=== PATIENT | male | born 1960 | race Caucasian/White ===

== ENCOUNTER 2018-06-11 09:30 | Outpatient (POV) | END 2018-06-11 17:00 | LOC: OUTPT 09:30 | PROVIDERS: ATTEND Otolaryngology | DX: H90.5 Unspecified sensorineural hearing loss (principal) ==

== ENCOUNTER 2018-11-22 22:03 | Emergency (ER) | payer OTHER ==
[2018-11-22 22:22] VITALS: BP 159/83; TEMP 99.3; BMI 29.6
--- NOTE | 2018-11-22 22:46 | ED.PDOC ---
General ED Provider: Dr. MARLINE BURDICK-ER Chief Complaint: Earache Stated Complaint: my ear is bleeding Time Seen by Physician: 22:43 Mode of Arrival: Wheelchair Information Source: Patient Exam Limitations: No limitations Primary Care Provider: RUTH BEDOLLA Nursing and Triage Documentation Reviewed and Agree: Yes Does patient meet sepsis criteria?: No System Inflammatory Response Syndrome: Not Applicable Sepsis Protocol: For patient's 13 years and over: Temp is 96.8 and below OR 101 and greater Pulse >90 BPM Resp >20/minute Acutely Altered Mental Status Are patient's symptoms suggestive of a new infection, such as: -Pneumonia -Skin, Soft Tissue -Endocarditis -UTI -Bone, Joint Infection -Implantable Device -Acute Abdominal Infection -Wound Infection -Meningitis -Blood Stream Catheter Infection -Unknown EENT Complaint Exam - Ear Complaint/Exam Onset/Duration: today Symptoms Are: Still present Initial Severity: Mild Current Severity: Mild Character: Reports: Dull pain Alleviating: Reports: None Associated Signs and Symptoms: Reports: Ear trauma Vesicles to External Pinna: No Vesicles to Tragus: No Tympanic Membrane: Erythema Differential Diagnoses: Otitis Media Review of Systems - Review Of Systems Constitutional: Reports: No symptoms Eyes: Reports: No symptoms Ears, Nose, Mouth, Throat: Reports: Ear pain, Ear discharge Respiratory: Reports: No symptoms Cardiac: Reports: No symptoms GI: Reports: No symptoms : Reports: No symptoms Musculoskeletal: Reports: No symptoms Skin: Reports: No symptoms Neurological: Reports: No symptoms Endocrine: Reports: No symptoms Hematologic/Lymphatic: Reports: No symptoms All Other Systems: Reviewed and Negative Past Medical History - Past Medical History Previously Healthy: No Endocrine: Reports: Unknown Cardiovascular: Reports: Unknown Respiratory: Reports: Unknown Hematological: Reports: Unknown Gastrointestinal: Reports: Unknown Genitourinary: Reports: Unknown Neuro/Psych: Reports: Unknown Musculoskeletal: Reports: Unknown Cancer: Reports: Unknown - Surgical History General Surgical History: Reports: Unknown - Family History Family History: Reports: Unknown - Social History Smoking Status: Never smoker Hx Substance Use: Yes Alcohol Screening: None - Immunizations Tetanus Shot up to Date: No (IS ALLERGIC) Physical Exam - Physical Exam Appearance: Well-appearing, No pain distress, Well-nourished Pain Distress: Mild Eyes: OSCAR, EOMI, Conjunctiva clear ENT: Erythema Neck: Supple Respiratory: Airway patent, Breath sounds clear, Breath sounds equal, Respirations nonlabored Cardiovascular: RRR, Pulses normal, No rub, No murmur GI/: Soft, Nontender, No masses, Bowel sounds normal, No Organomegaly Musculoskeletal: Normal strength, ROM intact, No edema, No calf tenderness Skin: Warm, Dry, Normal color Neurological: Sensation intact, Motor intact, Reflexes intact, Cranial nerves intact, Alert, Oriented Psychiatric: Affect appropriate, Mood appropriate Critical Care Note - Critical Care Note Total Time (mins): 0 Course - Course Vital Signs: Temp Pulse Resp BP Pulse Ox 11/22/18 22:04 99.3 F 86 24 159/83 H 93 L Departure - Departure Time of Disposition: 22:45 Disposition: HOME SELF-CARE Discharge Problem: Ear problem Instructions: Ruptured Eardrum (ED), Ear Infection (ED) Condition: Good Pt referred to PMD for follow-up: Yes IPMP verified?: No Additional Instructions: dry ear precautions---cipro 250mg bid x [id number]---f/u with dr bedolla next week to recheck eardrum--if bleeding is heavy--can use cotton ball to blot Allergies/Adverse Reactions: Allergies azithromycin [From Zithromax] Allergy (Severe, Verified 11/22/18 22:24) Itching unknown. cephalexin monohydrate [From Keflex] Allergy (Severe, Verified 11/22/18 22:24) Difficulty Breathing unknown. clindamycin Allergy (Severe, Verified 11/22/18 22:24) CANT REMEMBER unknown. erythromycin base Allergy (Severe, Verified 11/22/18 22:24) Itching vomitting. Penicillins Allergy (Severe, Verified 11/22/18 22:24) CANT REMEMBER unknown. Tetanus Vaccines and Toxoid Allergy (Severe, Verified 11/22/18 22:24) CANT REMEMBER unknown. vancomycin Allergy (Severe, Verified 11/22/18 22:24) Itching unknown. paper tape Allergy (Severe, Uncoded 11/22/18 22:24) Rash rash. Home Medications: Ambulatory Orders Aspirin [Aspir 81] 81 mg PO DAILY 06/11/18 Calcitriol [Rocaltrol] 0.5 mcg PO DAILY 06/11/18 Levothyroxine Sodium 50 mcg PO DAILY 06/11/18 Lopressor 25 mg PO BID 06/11/18 Oxcarbazepine [Trileptal] 300 mg PO DAILY 06/11/18 Cetirizine HCl [Zyrtec] 10 mg PO DAILY 11/22/18 Diphenhydramine HCl [Benadryl] 25 mg PO BEDTIME 11/22/18
== END 2018-11-22 23:10 | disposition home or self-care (01) ==
LOC: ED 22:03
DX: H92.09 Otalgia, unspecified ear (principal); H92.10 Otorrhea, unspecified ear
CPT/HCPCS: 99283

== ENCOUNTER 2018-11-25 00:57 | Emergency (ER) | payer OTHER ==
[2018-11-25 01:10] VITALS: BP 140/79; TEMP 100.2; BMI 30.5
[2018-11-25] MEDS ORDERED: SOLU-MEDROL 125 MG IM STA (01:38)
[2018-11-25] MEDS ORDERED: DUONEB NEB STA (01:38)
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
--- NOTE | 2018-11-25 01:59 | DI ---
EXAM: Two-view chest HISTORY: Shortness of breath COMPARISON: None. FINDINGS: Left-sided MediPort catheter tip seen in the superior vena cava.. The heart is normal in size. Atherosclerotic changes are seen involve the aortic arch... Chest wall deformity noted bilate rally right than left with multiple old healed rib fractures. A prior right-sided thoracoplasty is n ot excluded. There is volume loss of the right upper lobe. Prominent interstitial markings noted me dially at the right lung base. The right shoulder girdle has a heterogeneous expansile appearance wh ich may be related to fibrous dysplasia. Impression: Bilateral chest wall deformity with old healed rib fractures as described. Atelectasis versus developing infiltrate medial right lung base. Satisfactory appearing left-sided MediPort catheter. .
[2018-11-25] MEDS ORDERED: LEVAQUIN 500 MG in PREMIX 100 ML D5W 1 BAG IV STA (02:03)
[2018-11-25] MEDS ORDERED: LEVAQUIN PO STA (02:15)
== END 2018-11-25 02:50 | disposition home or self-care (01) ==
LOC: ED 00:57
DX: R06.02 Shortness of breath (principal); R06.00 Dyspnea, unspecified; R05 Cough; R06.2 Wheezing; R50.9 Fever, unspecified; J06.9 Acute upper respiratory infection, unspecified; F41.9 Anxiety disorder, unspecified; J18.1 Lobar pneumonia, unspecified organism
CPT/HCPCS: 36415; 80053; 85025; 87040; 87502; 94640; 96365; 96372; 99283

== ENCOUNTER 2019-02-28 22:01 | Emergency (ER) | payer OTHER ==
[2019-02-28 22:11] VITALS: BP 137/80; TEMP 99.7; BMI 29.9
[2019-02-28] MEDS ORDERED: XOPENEX 1.25 MG NEB STA (22:42)
[2019-02-28] MEDS ORDERED: DUONEB NEB STA (22:42)
[2019-02-28] MEDS ORDERED: DECADRON 4 MG/ML SDV IM STA (22:42)
--- NOTE | 2019-02-28 23:39 | DI ---
Exam: Chest two-view History: Shortness of breath FINDINGS: Technically inhibited study secondary to dysmorphic chest wall changes and non conventiona l positioning. The cardiomediastinal contours are normal allowing for limitations. Left approach Po rt-A-Cath with its tip at the superior vena cava level. No focal lung infiltrates. Dysplastic bony changes and thoracic scoliosis. Impression: 1. Chronic chest wall dysmorphic changes and dysplastic bony changes. 2. No obvious focal infiltrate. No change from 11/25/2018.
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
== END 2019-02-28 23:55 | disposition home or self-care (01) ==
LOC: ED 22:01
DX: J44.9 Chronic obstructive pulmonary disease, unspecified (principal); R06.02 Shortness of breath
CPT/HCPCS: 94640; 96372; 99283